=== PATIENT | female | born 1980 | race Caucasian/White ===

== ENCOUNTER 2017-03-15 09:31 | Emergency (ER) | payer MEDICAID ==
--- NOTE | 2017-03-15 09:52 | Emergency Department Record ---
History of Present Illness - General Chief Complaint: Overdose Stated Complaint: OVERDOSE Time Seen by Provider: 03/15/17 09:42 Source: EMS - History of Present Illness Initial Comments: patient found by dad unresponsive vomiting coffee ground emesis and some of the boyfriend oxycontin medication gone and one mg of narcan given and she wake up and responding somewhat and her breath sounds coarse and she was able to tell me no pain and she sis not try to commit suicide and she told me the day was tues. off one day. lethagic. No headache. Patient got out of long-term yesterday for 6 weeks and had a hysterectomy Complaint: Intentional overdose - [place] Coma Scale Eye Response: (3) Open to voice Motor Response: (4) Withdraws to pain Verbal Response: (4) Confused conversation [place] Total: 11 - Detail How Overdose Was Discovered: Family/friend present at time Context: Accidental Overdose: Wanted to get high Context: Intentional Overdose: Drug/ETOH problems, Legal problems - Related Data Home Medications Medication Instructions Recorded Confirmed Last Taken Multivitamin [Multi-Vitamin Daily] 1 each PO DAILY 06/08/15 03/15/17 12/17/16 Atorvastatin Calcium [Lipitor] 10 mg PO QHS 06/28/16 03/15/17 12/17/16 Carvedilol [Carvedilol] 3.12 mg PO DAILY 06/28/16 03/15/17 12/17/16 Previous Rx's Medication Instructions Recorded Losartan Potassium [Cozaar] 25 mg PO DAILY #30 tablet 03/13/15 Naproxen [Naprosyn] 250 mg PO BID #14 tablet 12/17/16 Allergies Allergy/AdvReac Type Severity Reaction Status Date / Time No Known Drug Allergies Allergy Verified 12/17/16 13:39 Review of Systems ROS unobtainable: Due to mental status Reviewed: No additional complaints except as noted below Constitutional: Reports: As per HPI Eyes: Reports: As per HPI ENT: Reports: As per HPI Respiratory: Reports: As per HPI Cardiovascular: Reports: As per HPI Endocrine: Reports: As per HPI Gastrointestinal: Reports: As per HPI Genitourinary: Reports: As per HPI Musculoskeletal: Reports: As per HPI Skin: Reports: As per HPI Neurological: Reports: As per HPI Psychiatric: Reports: As per HPI Hematological/Lymphatic: Reports: As per HPI Past Medical History - SOCIAL HISTORY Smoking Status: Former smoker Alcohol Use Comment: unknown - RESPIRATORY Hx Respiratory Disorders: No - CARDIOVASCULAR Hx Cardio Disorders: No Hx Abnormal EKG: Yes (08/2014) Hx Irregular Heartbeat: Yes (Left bundle branch block) - NEURO Hx Neuro Disorders: Yes Hx Dizziness: Yes (07/2014) - GI Hx GI Disorders: Yes Hx Reflux: Yes - Hx Genitourinary Disorders: No - ENDOCRINE Hx Endocrine Disorders: No - MUSCULOSKELETAL Hx Musculoskeletal Disorders: Yes Hx Arthritis: Yes - PSYCH Hx Psych Problems: No - HEMATOLOGY/ONCOLOGY Hx Hematology/Oncology Disorders: No Family Medical History Any Significant Family History?: Yes Hx Cancer: Mother, Grandparents Hx Dementia: Grandparents Hx Diabetes: Grandparents Hx Heart Disease: Father Hx Kidney Disease: Father Hx Liver Disease: Father Physical Exam - General General Appearance: Severe distress - Head Head exam: Atraumatic (coffee ground emesis in throat) - Eye Eye exam: PERRL - ENT ENT exam: Mucous membranes dry Ear exam: Normal external inspection Nasal Exam: Normal inspection Mouth exam: Other (coffee ground vomitus) Throat exam: Other (gag reflex present) - Neck Neck exam: Normal inspection - Respiratory Respiratory exam: Rhonchi, Other (coarse breath sounds) - Cardiovascular Cardiovascular Exam: Regular rate, Tachycardia - GI/Abdominal GI/Abdominal exam: Soft - Rectal Rectal exam: Deferred - exam: Deferred - Extremities Extremities exam: Normal inspection, Full ROM, Normal capillary refill. negative: Tenderness - Back Back exam: Reports: Normal inspection, Full ROM. Denies: Muscle spasm, Rash noted, Tenderness - Neurological Neurological exam: Other (lethargic and answering some questions) - Psychiatric Psychiatric exam: Other (father said she has had problems with drugs and he thinks she took his percocet and xanax she got of long-term yesterday) Course patient opens eyes to her name and than falls back asleep - Reevaluation(s) Reevaluation #1: 03/15/17 10:36 father said he would like her to go [facility] Reevaluation #2: discussed case with Dr. Montgomery and he accepted her at [facility] will transfer via EMS 03/15/17 11:27 Reevaluation #3: Patient wakes up to verbal commands and lethagic. 03/15/17 11:28 Reevaluation #4: discussed case with Dr. Montgomery and will transfer. klblood cultures and rocephin 1 gm IV started 03/15/17 11:54 Reevaluation #5: repeat exam and she responds to her name and her breathing is still coarse and withdraws from pain [place] scale 12 03/15/17 12:47 Medical Decision Making - Data Complexity MDM Data: Labs Ordered and/or Reviewed, X-Ray Ordered and/or Reviewed (chest xray infiltrates bilaterally worse on the right) - Lab Data Result diagrams: 03/15/17 10:12 03/15/17 10:00 Critical Care Time Critical Care Time: Yes Total Critical Care Time: 230 Critical Care Time: 230 minutes Disposition Clinical Impression: Overdose Qualifiers: Encounter type: initial encounter Injury intent: accidental or unintentional Qualified Code(s): T50.901A - Poisoning by unspecified drugs, medicaments and biological substances, accidental (unintentional), initial encounter Aspiration into respiratory tract Qualifiers: Encounter type: initial encounter Qualified Code(s): T17.908A - Unspecified foreign body in respiratory tract, part unspecified causing other injury, initial encounter Disposition: Acute Care Hospital Transfer Condition: (3) Guarded Forms: Patient Portal Access Time of Disposition: 12:22
[2017-03-15] MEDS ORDERED: NALOXONE HCL 1 MG/ML SYR IVP ONE ×4 (09:56→12:54)
[2017-03-15] MEDS ORDERED: ONDANSETRON HCL IV 4 MG/2 ML VIAL IVP ONE (10:16)
[2017-03-15 10:36] LABS: HEMOGLOBIN 12.7 gm/dl (11.6-16.0); MEAN CELL VOLUME 90.5 fl (81-97); MEAN CORPUSCULAR HEMOGLOBIN 30.2 pg (27-33); MEAN CORPUSCULAR HGB CONC 33.4 g/dl (32-36); MEAN PLATELET VOLUME 10.6 fl (7.4-10.4); PLATELET COUNT 383 K/uL (130-400); RED CELL DISTRIBUTION WIDTH 11.7 % (11.5-14.5); WHITE BLOOD COUNT W/O DIFF 13.1 K/uL (4.2-12.2)
[2017-03-15 10:40] LABS: URINE APPEARANCE SL CLOUDY; URINE BILIRUBIN NEGATIVE (NEGATIVE); URINE BLOOD LARGE (NEGATIVE); URINE COLOR YELLOW; URINE GLUCOSE (UA) NEGATIVE (NEGATIVE); URINE KETONE NEGATIVE (NEGATIVE); URINE LEUKOCYTE ESTERASE NEGATIVE (NEGATIVE); URINE NITRITE NEGATIVE (NEGATIVE); URINE PROTEIN TRACE (NEGATIVE); URINE UROBILINOGEN 0.2 E.U./dL (0.20 - 1.00)
[2017-03-15 10:41] LABS: BARBITURATE SCREEN URINE NOT DETECTED; BENZODIAZEPINE SCREEN URINE DETECTED; METHADONE SCREEN URINE NOT DETECTED; TRICYCLIC ANTIDEPRESSANT SCRN NOT DETECTED
[2017-03-15 10:42] LABS: AMPHETAMINE SCREEN URINE NOT DETECTED; COCAINE SCREEN URINE NOT DETECTED; METHAMPHETAMINE SCREEN NOT DETECTED; OPIATE SCREEN URINE NOT DETECTED; OXYCODONE SCREEN URINE DETECTED; PHENCYCLIDINE SCREEN URINE NOT DETECTED; PROPOXYPHENE SCREEN URINE NOT DETECTED; THC SCREEN URINE NOT DETECTED
[2017-03-15 10:45] LABS: URINE BACTERIA NONE SEEN; URINE EPITHELIAL CELLS NONE SEEN (FEW)
[2017-03-15 10:46] LABS: HCG,QUALITATIVE URINE NEGATIVE (NEGATIVE); URINE MUCUS MODERATE
[2017-03-15 10:48] LABS: PLATELET ESTIMATE NORMAL (NORMAL)
[2017-03-15 10:53] LABS: ALB/GLOB RATIO 1.6 (1.1-1.8); ALBUMIN 4.4 gm/dL (3.5-5.0); BLOOD UREA NITROGEN 11 mg/dL (7-17); CREATININE 0.6 mg/dL (0.52-1.04); EST GLOMERULAR FILTRATION RATE > 60 ml/min; GLUCOSE,RANDOM 124 mg/dL (70-110); TOTAL PROTEIN 7.2 gm/dL (6.3-8.2)
[2017-03-15 10:54] LABS: ACETAMINOPHEN < 10.0 ug/mL (10.0-30.0); ALKALINE PHOSPHATASE 68 U/L (38-126); ALT/SGPT 28 U/L (9-52); AST/SGOT 24 U/L (14-36); SALICYLATE < 1.0 mg/dL (2.8-20.0)
[2017-03-15] MEDS ORDERED: CEFTRIAXONE SODIUM 1 GM in 0.9 % SODIUM CHLORIDE 100ML 100 ML IVPB ONE (11:51)
[2017-03-15 12:00] LABS: ARTERIAL BLD GAS O2 SATURATION 92.6 % (95-98); ARTERIAL BLOOD GAS BASE EXCESS -1.2 mmol/L (-2 - 3); ARTERIAL BLOOD GAS HCO3 24.7 mmol/L (18-23); ARTERIAL BLOOD GAS PCO2 49.3 mmHg (35-48); ARTERIAL BLOOD GAS pH 7.32 (7.35-7.45); CARBOXYHEMOGLOBIN 1.5 % (0-1.5); METHEMOGLOBIN 0.6 % (0.0-1.5); O2 HEMOGLOBIN 90.7 % vol (94-99); TOTAL HEMOGLOBIN 11.8 g/dl (11.6-16)
[2017-03-15 12:01] LABS: ALLEN TEST PASS
--- NOTE | 2017-03-16 15:16 | CT SCAN REPORT ---
EXAM: CT OF THE CERVICAL SPINE HISTORY: UNRESPONSIVE. TECHNIQUE: CT of the cervical spine was performed. Axial images were obtained with coronal and sagittal reconstructions. Comparison: None. FINDINGS: Evaluation of the spinal canal contents is limited due to CT technique. There is rather extensive motion artifact which limits the exam. As visualized, the vertebral body height and alignment is preserved. Negative for fracture/compression deformity or subluxation. The atlantoaxial space is preserved. The lateral masses are not displaced. IMPRESSION: MOTION ARTIFACT LIMITS THE EXAM. OTHERWISE, UNREMARKABLE STUDY. JOB NUMBER: [id number] [facility]
--- NOTE | 2017-03-16 15:18 | RADIOLOGY REPORT ---
EXAM: PORTABLE CHEST HISTORY: UNRESPONSIVE. TECHNIQUE: A portable AP view of the chest was obtained. Comparison: Prior chest from 07/04/16. FINDINGS: The heart size is normal. Extensive right basilar air space opacity extending into the right perihilar region. No pneumothorax. IMPRESSION: EXTENSIVE RIGHT BASILAR/RIGHT PERIHILAR AIR SPACE OPACITY. JOB NUMBER: [id number] [facility]
--- NOTE | 2017-03-16 15:21 | CT SCAN REPORT ---
EXAM: CT OF THE BRAIN HISTORY: UNRESPONSIVE. TECHNIQUE: CT of the brain without contrast was obtained. Comparison: 04/14/08 CT of the brain. FINDINGS: The globes are intact. Air fluid levels of the maxillary sinuses with mucosal thickening of the ethmoid air cells. Mucosal thickening of the frontal sinuses as well. No displaced or depressed skull fracture. No intra or extraaxial hemorrhage. CT is limited for the evaluation of acute infarct. No CT evidence for large or territorial acute infarct. Prominent perivascular space in the basal ganglia region, unchanged. No mass or midline shift. IMPRESSION: SINUSITIS, ABOVE. THE REMAINDER OF THE EXAMINATION IS UNREMARKABLE. JOB NUMBER: [id number] [facility]
== END 2017-03-15 13:17 | disposition short-term general hospital (02) ==
LOC: ER 09:31
DX: T50.901A Poisoning by unspecified drugs, medicaments and biological substances, accidental (unintentional), initial encounter (principal); T17.818A Gastric contents in other parts of respiratory tract causing other injury, initial encounter; J69.0 Pneumonitis due to inhalation of food and vomit; R33.8 Other retention of urine; I44.7 Left bundle-branch block, unspecified
CPT/HCPCS: 51702; 93041; 99285 ×2; 96376; 94760; 96365; 96375; 82140; 85730; 82375; 80053; 81001; 82803; 81025; 80305; 85027; 71010; 72125; 70450; 36600; 93005; 93010; G0480 ×3; J2405; 80320; 80329; J2310

== ENCOUNTER 2018-03-22 10:28 | Day surgery (SDC) | payer MEDICAID ==
[2018-03-22] MEDS ORDERED: FENTANYL PF 100MCG/2ML VIAL IV ONE (10:29)
[2018-03-22] MEDS ORDERED: PROPOFOL 10 MG/ML VIAL IV ONE (10:29)
[2018-03-22] MEDS ORDERED: LIDOCAINE 2% MDV (20MG/ML) 20ML VIAL IV ONE (10:29)
--- NOTE | 2018-03-23 13:20 | Operative Note ---
DATE OF SURGERY: 03/22/2018 OPERATION: ESOPHAGOGASTRODUODENOSCOPY with biopsy. PREOPERATIVE DIAGNOSIS: Heartburn and dysphagia. POSTOPERATIVE DIAGNOSIS: Irregular Z-line suspicious for short-segment Ji's. Otherwise normal upper endoscopy. PROCEDURE: After informed consent was obtained from the patient, she was placed in the left lateral decubitus position in the endoscopy suite, sedated and monitored by the department of anesthesia. A well-lubricated [id number] gastroscope was placed in the posterior oropharynx and under direct visualization passed to the proximal esophagus. The endoscope was advanced through the proximal, mid, and distal esophagus. The GE junction demonstrated irregularity of the squamocolumnar border suspicion for short-segment Ji's. The remainder of the esophagus appeared entirely normal. No strictures, varices, mass lesions, or irregularity was noted. The gastric body, antrum, pylorus, duodenal bulb, and sweep were unremarkable. J-turn views of the proximal stomach were unremarkable. No masses were seen. The endoscope was straightened. Biopsies were obtained from the squamocolumnar border to rule out short-segment Ji's. No excessive bleeding was noted. The endoscope was then slowly retracted through the course of the esophagus. No new findings or abnormalities were identified. RECOMMENDATIONS: We will await the results of biopsies. If the patient has persistent issues, suggest consideration of an esophagram to assess functionality as well as her anatomy. It is unclear if some of her symptoms may be oropharyngeal related to her thyroid issues. As always, thank you for allowing me to participate in the healthcare of your patients. CC: FAYE Giraldo
== END 2018-03-22 12:03 | disposition home or self-care (01) ==
LOC: HOP 10:28
PROVIDERS: ATTEND Internal Medicine Gastroenterology
DX: R13.10 Dysphagia, unspecified (principal); R12 Heartburn; K31.89 Other diseases of stomach and duodenum; E78.00 Pure hypercholesterolemia, unspecified; I44.7 Left bundle-branch block, unspecified; M19.90 Unspecified osteoarthritis, unspecified site